=== PATIENT | male | born 1945 | race Caucasian/White ===

== ENCOUNTER 2018-11-29 12:22 | Inpatient (IN) | payer MEDICARE, OTHER ==
[~2018-11-29] VITALS: Ht 172.7 cm; Wt 125.5 kg
[2018-11-29 12:58] LABS: COLLECTION METHOD CLEAN CATCH
[2018-11-29 13:01] LABS: BASO % 0.2 % (0.0-2.0); GRAN # 12.6 (1.4-6.5); GRAN % 84.5 % (42.2-75.2); HEMATOCRIT 47.1 % (42.0-52.0); HEMOGLOBIN 15.8 g/dl (13.5-18.0); LYMPH # 1.4 (1.2-3.4); LYMPH % 9.4 % (20.0-51.0); MEAN CELL VOLUME 95 fl (80.0-100.0); MEAN CORPUSCULAR HEMOGLOBIN 32 pg (27.0-31.0); MEAN CORPUSCULAR HGB CONC 34 g/dl (33.0-37.0); MEAN PLATELET VOLUME 10.3 fl (7.4-10.4); MONO # 0.7 (0.1-0.6); MONO % 4.9 % (1.7-9.3); PLATELET COUNT 118 K/mm3 (130-400); RED BLOOD COUNT 4.96 M/mm3 (4.20-5.60); REDCELL DISTRIBUTION WIDTH-CV 16.6 % (11.5-14.5)
[2018-11-29 13:06] LABS: MUCOUS Present /lpf; PH 5 (5-8); SQUAMOUS EPITHELIAL 0-2 /hpf; URINE APPEARANCE Clear; URINE BACTERIA None Seen /hpf; URINE BILIRUBIN Negative (NEGATIVE); URINE BLOOD 2+ (NEGATIVE); URINE COLOR Yellow; URINE GLUCOSE Negative (NEGATIVE); URINE KETONE Negative (NEGATIVE); URINE LEUKOCYTE ESTERASE Negative (NEGATIVE); URINE NITRATE Negative (NEGATIVE); URINE PROTEIN(semi-quant) Negative (NEGATIVE); URINE UROBILINOGEN Negative (NEGATIVE)
[2018-11-29 13:15] LABS: ALBUMIN 3.9 gm/dL (3.5-5.0); CALCIUM 9.4 mg/dL (8.4-10.2); CREATININE, serum 2.26 (0.66-1.25); POTASSIUM 4.2 mmol/L (3.4-5.0); TOTAL PROTEIN 8.8 gm/dL (6.4-8.2)
[2018-11-29 13:26] LABS: TROPONIN-I 0.033 ng/mL (0.000-0.035)
[2018-11-29] MEDS ORDERED: DEPAKOTE ER 50500 MG PO (13:31)
[2018-11-29] MEDS ORDERED: BENEMID500 MG PO (13:32)
[2018-11-29] MEDS ORDERED: DEPAKOTE 250MG250 MG PO (13:34)
[2018-11-29] MEDS ORDERED: LASIX 80MG TABL80 MG PO (13:35)
[2018-11-29] MEDS ORDERED: CAPOTEN 50MG50 MG PO (13:35)
[2018-11-29] MEDS ORDERED: JANTOVEN3 M1 PO (13:36)
[2018-11-29] MEDS ORDERED: ASPIRIN E.C. 8181 MG PO (13:37)
[2018-11-29] MEDS ORDERED: FLOMAX 0.40.4 MG/CAP PO (13:38)
[2018-11-29] MEDS ORDERED: LIPITOR 40MG TA40 MG PO (13:39)
[2018-11-29] MEDS ORDERED: LOFIBRA134 MG PO (13:39)
[2018-11-29 14:03] LABS: ARTERIAL BLD GAS O2 SATURATION 95.6 % (92-100); ARTERIAL BLD GAS TCO2 CT 25.6; ARTERIAL BLOOD GAS BASE EXCESS -0.2 (-2-2); ARTERIAL BLOOD GAS HCO3 24.4 meq/L (22-26); ARTERIAL BLOOD GAS PCO2 39.7 mmHg (35-45); ARTERIAL BLOOD GAS PO2 85.9 mmHg (80-100); ARTERIAL BLOOD GAS pH 7.41 (7.35-7.45)
[2018-11-29 15:21] VITALS: BP 112/58; PULSE 97; TEMP 100.7
[2018-11-29] MEDS ORDERED: COREG 25MG25 MG/TAB PO (16:45)
--- NOTE | 2018-11-29 16:45 | NUR ---
Pt admission, assessment and med rec completed and charted. Pt laying in bed, able to answer questions, A&O but states he is "sleepy and wants to nap". Pt has family at bedside. Hospitalist has visited with pt. Pt has 20g INT IV RAC, flushes w/ no complications. Pt on 2L NC. Denies chest pain, N/V. Pt c/o some dizziness and some SOB. Pt put on fall risk precautions, bed alarm on, pt in yellow gown, call light within reach. Pt has BLE edema 2+, purple/reddish/hard to touch/dry/scaling. Pt has rash to mid and lower back, blanchable, per pt and family it is "new". Pt noted to also have deep tissue injury/ecchymosis to coccyx and buttocks, hard to touch, per pt also "new" and unaware of how long it has been there. pt denies falling. No other concerns voiced by patient at this time.
[2018-11-29 19:24] VITALS: BP 103/79; PULSE 82; TEMP 98.8
[2018-11-29 19:28] LABS: PROTHROMBIN TIME 23.4 SECONDS (9.7-12.8)
--- NOTE | 2018-11-29 20:30 | NUR ---
Initial shift assessment done- flushed, afebrile at this time, Tele on, afib/rate 70,s, IV fluids of NS at 75cc/hr, Up to BSC with 2 assists-unsteady on feet, o2 at 1.5L/nc, will use his CPAP from home tonight, Has bright red rash to lower back, then goes to a very deep red down to buttocks, almost a black to right buttocks- Dr did see this on days, ordered a fungal cream - will apply tonight.
[2018-11-29 23:55] VITALS: BP 120/78; PULSE 80; TEMP 98.4
[2018-11-30 03:50] VITALS: BP 119/63; PULSE 87; TEMP 100.4
--- NOTE | 2018-11-30 06:08 | NUR ---
Did sleep for a good part of the night- highest temp this shift 100.4, tele on, afib rate 70-80, states is maybe feeling a little better
[2018-11-30 06:43] LABS: HEMATOCRIT 43.4 % (42.0-52.0); HEMOGLOBIN 14.3 g/dl (13.5-18.0); MEAN CELL VOLUME 95 fl (80.0-100.0); MEAN CORPUSCULAR HEMOGLOBIN 31 pg (27.0-31.0); MEAN CORPUSCULAR HGB CONC 33 g/dl (33.0-37.0); MEAN PLATELET VOLUME 11.6 fl (7.4-10.4); PLATELET COUNT 89 K/mm3 (130-400); RED BLOOD COUNT 4.58 M/mm3 (4.20-5.60); REDCELL DISTRIBUTION WIDTH-CV 16.7 % (11.5-14.5)
[2018-11-30 06:53] LABS: INR 2.5 (0.8-3.0); PROTHROMBIN TIME 29.5 SECONDS (9.7-12.8)
[2018-11-30 07:32] VITALS: BP 124/56; PULSE 75; TEMP 98.9
[2018-11-30 08:08] LABS: ALBUMIN 3.1 gm/dL (3.5-5.0); BILIRUBIN,TOTAL 0.8 mg/dL (0.0-1.0); CALCIUM 8.7 mg/dL (8.4-10.2); CREATININE, serum 1.48 (0.66-1.25); TOTAL PROTEIN 7.2 gm/dL (6.4-8.2)
--- NOTE | 2018-11-30 09:37 | NUR ---
Vancomycin Initial Dosing Pharmacy Note Ordering provider: Vince Hutchison MD Indication/duration: Cellulitis Relevant comorbidities: LABS: Serum Creatinine = 1.48, est CrCl of 52 mL/min Recommendation: Will follow daily serum creatinine, and obtain trough on 12/02. Loading dose: 1.5 grams Maintenance dose: 1 gram every 12 hours Trough goal: 10-15 ug/mL
[2018-11-30 11:05] VITALS: BP 102/60; PULSE 72; TEMP 98.7
[2018-11-30 11:27] LABS: ANISOCYTOSIS 1+; BAND 5 % (0-10); LYMPHOCYTE 27 % (20.0-51.0); NEUTROPHILS 62 % (42.0-75.2)
[2018-11-30 11:28] LABS: PLATELET ESTIMATE DECREASED (NORMAL)
[2018-11-30 16:36] VITALS: BP 109/69; PULSE 72; TEMP 97.8
--- NOTE | 2018-11-30 17:36 | NUR ---
Pt assessment completed this morning, medications adminstered per MAY. Pt c/o of back pain, rating it 8/10. Pt on 3L NC. Denies chest pain, N/V, dizziness, SOB, palpitations. Rash located on mid/lower back, red/warm to touch, dark purple in areas, worsened from yesterday. Redness and deep purple extends to coccyx. RAC IV flushes with no complications. Pt voices no other concerns at this time. Pt on fall precautions, educated on using call light for assist to bedside commode.
[2018-11-30 20:00] VITALS: BP 91/56; PULSE 72; TEMP 98.1
--- NOTE | 2018-11-30 21:42 | NUR ---
Initial shift assessment done- states having some back soreness from the bed, otherwise no pain, o2 at 3L/nc. Denies SOB. Flushes at times. Up to BSC- unsteady on feet- needs 2 assist up.
[2018-12-01] VITALS (7 sets, daily range): BP systolic 99–137; BP diastolic 48–75; PULSE 45–85; TEMP 96.9–98.8
--- NOTE | 2018-12-01 04:56 | NUR ---
Did sleep for 4-5 hours, off CPAP at this time- back on 2L/nc, using urinal during the night- VSS
[2018-12-01 06:51] LABS: BASO # 0.1 (0.0-0.2); BASO % 0.4 % (0.0-2.0); EOS # 0.1 (0.0-0.7); EOS % 0.4 % (0-4.0); HEMATOCRIT 39.8 % (42.0-52.0); HEMOGLOBIN 12.7 g/dl (13.5-18.0); LYMPH # 2.1 (1.2-3.4); LYMPH % 18.1 % (20.0-51.0); MEAN CELL VOLUME 97 fl (80.0-100.0); MEAN CORPUSCULAR HEMOGLOBIN 31 pg (27.0-31.0); MEAN CORPUSCULAR HGB CONC 32 g/dl (33.0-37.0); MEAN PLATELET VOLUME 11.7 fl (7.4-10.4); MONO # 1.2 (0.1-0.6); MONO % 10.1 % (1.7-9.3); PLATELET COUNT 101 K/mm3 (130-400); RED BLOOD COUNT 4.11 M/mm3 (4.20-5.60); REDCELL DISTRIBUTION WIDTH-CV 16.6 % (11.5-14.5)
[2018-12-01 06:56] LABS: PROTHROMBIN TIME 35.8 SECONDS (9.7-12.8)
[2018-12-01 07:11] LABS: ALBUMIN 2.9 gm/dL (3.5-5.0); BILIRUBIN,TOTAL 0.5 mg/dL (0.0-1.0); CALCIUM 8.9 mg/dL (8.4-10.2); CREATININE, serum 1.28 (0.66-1.25); POTASSIUM 4.1 mmol/L (3.4-5.0); TOTAL PROTEIN 6.9 gm/dL (6.4-8.2)
--- NOTE | 2018-12-01 11:52 | NUR ---
First visit from the ophthalmologist retina specialist. No needs right now.
--- NOTE | 2018-12-01 13:11 | NUR ---
Pt assessment completed and charted. Pt up to recliner. A&O. On 2L NC. Denies chest pain, dizziness, SOB, N/V. C/O pain on buttocks due to "laying around". Rash/erythema/deep purple/discoloration still noted on mid/lower back and coccyx area. Areas marked, no growth, no improvement or decrease in size. Area on mid back is blanchable. RAC IV had NS @75ml/hr running with no complications. Fluids dc'd later this morning. No other concerns voiced at this time. Call light within reach.
--- NOTE | 2018-12-01 16:00 | NUR ---
SW met with patient to discuss discharge planning. Patient lives in [place] and is visiting family here in [place]. Patient reports he lives alone but his daughter and other family live close by in [place]. Patient traveled from home to [place] with his daughter and grandchildren. Patient's PCP is Dr Zapata and he obtains prescriptions through the [place] or from [facility] in [place]. Patient reports he uses a walker PRN and has a CPAP. Patient does not report any home health services. Patient was seen by PT and OT for eval. PT and OT do no recommend any continued therapy when patient returns to [place]. Patient reports he plans to return home with his family once he is discharged. SW will continue to follow. No discharge needs at this time.
--- NOTE | 2018-12-01 18:30 | NUR ---
Uneventful day for patient. Up to recliner throughout day, walked with therapy twice. Showered. No complaints thus far.
--- NOTE | 2018-12-01 20:50 | NUR ---
Patient assessed at this time. Alert and oriented x 4, and able to make needs known. Denies having pain and discomfort. Peripheral IV to right AC flushed. Site is without redness, warmth, swelling, and pain. Denies SOB and dyspnea, except wtih exertion. On oxygen at 2 L/min via NC. LS CTA upper lobes, diminished lower lobes. Telemetry in place. Heart with irregular rhythm. Capillary refill less than 3 seconds. Non-tenting skin turgor. BSAx4. Abdomen soft and non-tender. 2+ edema BLE. Lower back/bottom red/purple ecchymosis. Not spreading according to markers. BLE dry, with discoloration to BLE. Voices no questions, needs, or concerns at this time. Sitting up in recliner watching TV at this time. Call light is within reach.
--- NOTE | 2018-12-02 04:45 | NUR ---
Patient has been calling for assistance with toileting. One assist with use of walker. Denied having pain and discomfort. Has been wearing CPAP with oxygen at 2 L/min via bleed in. Resting in bed with call light within reach.
[2018-12-02 05:27] VITALS: BP 103/55; PULSE 72; TEMP 98.1
[2018-12-02 05:56] LABS: HEMATOCRIT 39.6 % (42.0-52.0); HEMOGLOBIN 12.8 g/dl (13.5-18.0); MEAN CELL VOLUME 96 fl (80.0-100.0); MEAN CORPUSCULAR HEMOGLOBIN 31 pg (27.0-31.0); MEAN CORPUSCULAR HGB CONC 32 g/dl (33.0-37.0); MEAN PLATELET VOLUME 11.6 fl (7.4-10.4); PLATELET COUNT 118 K/mm3 (130-400); RED BLOOD COUNT 4.11 M/mm3 (4.20-5.60); REDCELL DISTRIBUTION WIDTH-CV 16.6 % (11.5-14.5)
[2018-12-02 06:02] LABS: INR 2.7 (0.8-3.0); PROTHROMBIN TIME 32.7 SECONDS (9.7-12.8)
[2018-12-02 06:12] LABS: ALBUMIN 2.9 gm/dL (3.5-5.0); BILIRUBIN,TOTAL 0.5 mg/dL (0.0-1.0); CALCIUM 9.7 mg/dL (8.4-10.2); CREATININE, serum 1.08 (0.66-1.25); POTASSIUM 4.2 mmol/L (3.4-5.0); TOTAL PROTEIN 6.8 gm/dL (6.4-8.2)
[2018-12-02 06:16] LABS: ANISOCYTOSIS 1+; BASOPHIL 1 % (0-2); EOSINOPHIL 1 % (0-4); LYMPHOCYTE 30 % (20.0-51.0); MYELOCYTE 1 % (0-0); NEUTROPHILS 58 % (42.0-75.2); PLATELET ESTIMATE DECREASED (NORMAL); POLYCHROMASIA 1+
[2018-12-02 07:25] VITALS: BP 114/58; PULSE 85; TEMP 98
--- NOTE | 2018-12-02 09:00 | NUR ---
Assessment complete. Pt sitting up in chair after working with PT, reports pain to right foot, radiating to right leg 7 out of 10, states "it's my gout." Provider notified. Saline lock IV to right AC without s/s of complications. O2 off at this moment, pt 90% on room air. No further needs reported. Call light in reach.
[2018-12-02 11:02] VITALS: BP 116/65; PULSE 70; TEMP 97.8
--- NOTE | 2018-12-02 13:38 | NUR ---
SW attended clinical rounds to discuss discharge plan with patient and daughter. Patient will likely discharge tomorrow. Patient's daughter reports patient will stay here in [place] until Friday and then return to [place]. Patient has been working with therapy and his daughter also reports he was able to walk around the halls last night. SW does not anticipate any discharge needs.
[2018-12-02 15:50] VITALS: BP 100/46; PULSE 70; TEMP 97.5
--- NOTE | 2018-12-02 17:30 | NUR ---
Pt sitting up in chair, visiting with sister, denies needs at this time. Pain has decreased since restarting Gout medication. Call light in reach.
[2018-12-02 19:43] VITALS: BP 123/70; PULSE 66; TEMP 98
--- NOTE | 2018-12-02 21:00 | NUR ---
Patient assessed at this time. Alert and oriented x 4, with intermittent confusion. Has been calling for assistance with toileting. Peripheral IV to right AC flushed. Site is without redness, warmth, swelling, and pain. Denies having SOB and dyspnea. Stated he was without oxygen most of the day. Getting CPAP ready at this time for HS. LS CTA in upper lobes, diminished in lower lobes. Heart with irregular rate and rhythm. Telemetry in place. Capillary refill less than 3 seconds. Non-tenting skin turgor. BSAx4. Abdomen soft and non-tender. 2+ edema BLE. Red/purple rash/blister/echymosis area to back/sacrum area continues. Purple discoloration continues to BLE. Voices no questions, needs, or concerns. Assisted into bed as requested. Call light within reach.
[2018-12-02 23:43] VITALS: BP 137/77; PULSE 84; TEMP 97.6
[2018-12-03 04:00] VITALS: BP 144/80; PULSE 76; TEMP 97.7
--- NOTE | 2018-12-03 04:22 | NUR ---
Patient has not had any complaints of pain or discomfort this shift. Has voiced no questions, needs, or concerns. Has been wearing CPAP tonight. Resting in bed with eyes closed. Call light is within reach.
[2018-12-03 06:49] LABS: HEMOGLOBIN 13.3 g/dl (13.5-18.0); MEAN CELL VOLUME 96 fl (80.0-100.0); MEAN CORPUSCULAR HEMOGLOBIN 31 pg (27.0-31.0); MEAN CORPUSCULAR HGB CONC 32 g/dl (33.0-37.0); MEAN PLATELET VOLUME 11.4 fl (7.4-10.4); PLATELET COUNT 166 K/mm3 (130-400); RED BLOOD COUNT 4.36 M/mm3 (4.20-5.60); REDCELL DISTRIBUTION WIDTH-CV 16.4 % (11.5-14.5)
[2018-12-03 06:52] LABS: INR 2.4 (0.8-3.0); PROTHROMBIN TIME 28.8 SECONDS (9.7-12.8)
[2018-12-03 07:06] LABS: CALCIUM 10.2 mg/dL (8.4-10.2); CREATININE, serum 0.93 (0.66-1.25); POTASSIUM 4.5 mmol/L (3.4-5.0)
[2018-12-03 07:29] LABS: LYMPHOCYTE 35 % (20.0-51.0); NEUTROPHILS 51 % (42.0-75.2); NUCLEATED RED BLOOD CELL 1 (0-6)
[2018-12-03 07:30] LABS: ANISOCYTOSIS 2+; PLATELET ESTIMATE NORMAL (NORMAL)
--- NOTE | 2018-12-03 08:09 | NUR ---
Pt resting in bed watching TV, has C/O pain in his right foot from gout, shift assessments complete, left Pt call light in reach, bed in lowest position.
[2018-12-03] MEDS ORDERED: COLCRYS0.6 MG PO (09:08)
[2018-12-03 09:09] VITALS: BP 137/71; PULSE 85; TEMP 97.6
[2018-12-03] MEDS ORDERED: DOXYCYCLINE 10100 MG PO (10:16)
--- NOTE | 2018-12-03 11:19 | NUR ---
SW attended clinical rounds. Patient daughter was present via phone. Patient will discharge today and will be staying with his sisters in [place] until Friday. Patient does not have a walker in [place] with him but PT will loan a walker until patient returns to [place]. MARCELLA presented IM to patient. He verbalized understanding, signed, and was provided a copy. MARCELLA also spoke with patients daughter, Patricia, via phone and she reports patient's sisters will provide transportation. No discharge needs.
--- NOTE | 2018-12-03 13:27 | NUR ---
Pt discharged to home, escorted to entrance, left with family via private auto.
== END 2018-12-03 13:28 | disposition home or self-care (01) | DRG 871 ==
LOC: COL.ER 12:22 → MEDICAL 13:21
PROVIDERS: Family Medicine; Physician Assistant; Student in an Organized Health Care Education/Training Program; ADMIT Hospitalist
DX: A41.9 Sepsis, unspecified organism (principal); J18.9 Pneumonia, unspecified organism; J96.01 Acute respiratory failure with hypoxia; N17.9 Acute kidney failure, unspecified; Z68.41 Body mass index [BMI] 40.0-44.9, adult; I25.10 Atherosclerotic heart disease of native coronary artery without angina pectoris; I50.9 Heart failure, unspecified; N18.9 Chronic kidney disease, unspecified; Z66 Do not resuscitate; J44.9 Chronic obstructive pulmonary disease, unspecified; I48.91 Unspecified atrial fibrillation; F32.9 Major depressive disorder, single episode, unspecified; R73.03 Prediabetes; E78.5 Hyperlipidemia, unspecified; M10.9 Gout, unspecified; G25.0 Essential tremor; E66.01 Morbid (severe) obesity due to excess calories; R21 Rash and other nonspecific skin eruption; N40.0 Benign prostatic hyperplasia without lower urinary tract symptoms; G47.33 Obstructive sleep apnea (adult) (pediatric); Z79.01 Long term (current) use of anticoagulants; Z79.82 Long term (current) use of aspirin; Z95.810 Presence of automatic (implantable) cardiac defibrillator; Z95.5 Presence of coronary angioplasty implant and graft; Z87.891 Personal history of nicotine dependence
CPT/HCPCS: 99223-AI; 99232-AI; 99233-AI; 99239; A4216; A9284; J0696; J1644; J3370; J7030; J7050